=== PATIENT | female | born 1980 | race African-American/Black ===

== ENCOUNTER 2020-06-01 11:46 | Emergency (ER) | payer OTHER ==
[2020-06-01 12:06] VITALS: BP 124/87; PULSE 60; TEMP 98.6; BMI 29.8
[2020-06-01] MEDS ORDERED: SODIUM CHLORIDE 1,000 ML IV STA (12:29)
[2020-06-01 12:57] LABS: BASO % 1.1 % (0-2.0); EOS % 2.2 % (0-4.5); HEMOGLOBIN 14.1 GM/dL (10.7-15.3); LYMPH % 31.1 % (8-40); MCH 29.9 pg (25.7-33.7); MCHC 34.4 g/dl (32.0-36.0); MEAN CELL VOLUME 86.9 fl (80-96); MEAN PLT VOLUME 8.3 fl (7.5-11.1); MONO % 8.5 % (3.8-10.2); NEUT % 57.1 % (42.8-82.8); PLATELET COUNT 311 K/MM3 (134-434); RBC 4.72 M/mm3 (3.60-5.2); RDW 13.2 % (11.6-15.6); WHITE BLOOD COUNT 6.1 K/mm3 (4.0-10.0)
[2020-06-01 12:58] LABS: HCG,QUALITATIVE URINE Positive
[2020-06-01 13:00] LABS: EPI CELLS 36 /uL (0-25.1); HYALINE CASTS 5 /uL (0-3.1); PH,URINE 5.5 (5.0-8.0); URINE APPEARANCE CLOUDY; URINE BACTERIA 1227 /uL (0-1359); URINE BILIRUBIN NEGATIVE (NEGATIVE); URINE COLOR DK YELLOW; URINE GLUCOSE (UA) NEGATIVE (NEGATIVE); URINE KETONE 4+ (NEGATIVE); URINE LEUK ESTERASE TRACE (NEGATIVE); URINE NITRITE NEGATIVE (NEGATIVE); URINE PROTEIN 1+ (NEGATIVE); URINE RBC 7 /uL (0-23.9); URINE WBC 24 /uL (0-25.8)
[2020-06-01 13:22] LABS: CALCIUM 9.3 mg/dL (8.5-10.1)
[2020-06-01 13:23] LABS: ALBUMIN 3.8 g/dl (3.4-5.0); BLOOD UREA NITROGEN 12.6 mg/dL (7-18)
[2020-06-01 13:26] LABS: CREATININE 0.8 mg/dL (0.55-1.3)
[2020-06-01 13:27] LABS: BILIRUBIN,TOTAL 0.6 mg/dL (0.2-1)
[2020-06-01 13:28] LABS: TOT PROT 8.1 g/dl (6.4-8.2)
[2020-06-01] MEDS ORDERED: ONDANSETRON 4 MG/2 ML VIAL IVPUSH ONE (13:39)
[2020-06-01] MEDS ORDERED: ONDANSETRON 4 MG/2 ML VIAL ONE (13:40)
== END 2020-06-01 14:32 | disposition home or self-care (01) ==
LOC: JER 11:46
PROC: 3E033NZ Introduction of Analgesics, Hypnotics, Sedatives into Peripheral Vein, Percutaneous Approach (ICD-10-PCS; principal; 2020-06-01)
PROC: 3E0337Z Introduction of Electrolytic and Water Balance Substance into Peripheral Vein, Percutaneous Approach (ICD-10-PCS; 2020-06-01)
DX: O21.9 Vomiting of pregnancy, unspecified (principal); U07.1 COVID-19
CPT/HCPCS: 36415; 80053; 81003; 83690; 84703; 85025; 87086; 99284-25; C9803; U0003; U0005